=== PATIENT | female | born 1985 | race African-American/Black ===

== ENCOUNTER → 2016-10-19 | Outpatient (CLI) | payer OTHER ==
--- NOTE | 2016-10-20 03:35 | REP ---
Clinical: Dating and viability. Technique: Transabdominal first trimester obstetrical ultrasound with color Doppler evaluation. Findings: This examination demonstrates a single live early intrauterine in cephalic presentation. motion was identified by technologist. Placenta is noted fundally grade zero without evidence for placenta previa or abruption. Amniotic fluid volume is subjectively normal. Cervix measures 3.3 cm in length and appears closed. Gestational age by current biometrical measurements equals 13 weeks 5 days. Estimated date of delivery equals 04/21/2017. heart rate equals 171 beats per minute. Impression: Single live intrauterine at 13 weeks 5 days gestational age by current measurements. Complete anatomical assessment should be performed at 19-20 weeks. Signed by Ralph Gallegos MD 10/20/2016 03:27 A
== END ==
LOC: M RAD 14:51
PROVIDERS: ATTEND Nurse Practitioner Family
DX: Z32.01 Encounter for pregnancy test, result positive (principal)